=== PATIENT | female | born 1960 | race Caucasian/White ===

== ENCOUNTER 2019-10-12 05:58 | Day surgery (SDC) | payer OTHER ==
[~2019-10-12] VITALS: Ht 167.6 cm; Wt 76.5 kg
[~2019-10-12 05:58] MED LIST: SODIUM CHLORIDE 0.9% 1,000 ML ONE
[2019-10-12] MEDS ORDERED: LIDOCAINE 4% 50 ML SOLUTION TP ONE (05:59)
[2019-10-12] MEDS ORDERED: LIDOCAINE 2% 30 ML JELLY TP ONE (05:59)
[2019-10-12] MEDS ORDERED: BENZOCAINE 20% 50 MCG/SPRAY 57 GM TP ONE (05:59)
[2019-10-12] MEDS ORDERED: ALBUTEROL SULFATE 2.5 MG/0.5 ML NEB SOLUTION NEB ONE (05:59)
[2019-10-12] MEDS ORDERED: SODIUM CHLORIDE 0.9% 1,000 ML IV ONE (06:00)
[2019-10-12] MEDS ORDERED: BECL10.62 IH (07:04)
[2019-10-12] MEDS ORDERED: MONT10TA21 PO (07:04)
[2019-10-12] MEDS ORDERED: ALBU8HFA IH (07:04)
[2019-10-12] MEDS ORDERED: INSLAN SQ (07:04)
[2019-10-12] MEDS ORDERED: LISI-662 PO (07:04)
[2019-10-12] MEDS ORDERED: LEVO112T4 PO (07:04)
[2019-10-12] MEDS ORDERED: EVOL140P3 SQ (07:04)
[2019-10-12] MEDS ORDERED: SERT100T12 PO (07:04)
[2019-10-12] MEDS ORDERED: LEVO-72 PO (07:04)
[2019-10-12] MEDS ORDERED: FAMO20 PO (07:04)
[2019-10-12] MEDS ORDERED: ATOR20TA86 PO (07:04)
[2019-10-12] MEDS ORDERED: BUPR150T3 PO (07:04)
[2019-10-12] MEDS ORDERED: FLUT16H NASAL (07:04)
[2019-10-12 07:49] LABS: GLUCOMETER DEV NAME(LOC) SDS.; GLUCOSE,POINT OF CARE 210 MG/DL (70-110)
[2019-10-12] MEDS ORDERED: MIDAZOLAM HCL 2 MG/2 ML VIAL ONE (08:10)
[2019-10-12] MEDS ORDERED: FentaNYL CITRATE-PF 100 MCG/2 ML VIAL ONE (08:11)
[2019-10-12] MEDS ORDERED: MethylPREDNISolone SOD SUCC 125 MG/2 ML VIAL IVP ONE (08:45)
[2019-10-12] MEDS ORDERED: MethylPREDNISolone SOD SUCC 125 MG/2 ML VIAL ONE (08:48)
[2019-10-12] MEDS ORDERED: OXYGEN THERAPY IH SCH (20:00)
== END 2019-10-12 10:50 | disposition home or self-care (01) ==
LOC: SURGERY 05:58
PROVIDERS: ATTEND Internal Medicine Critical Care Medicine
DX: B37.0 Candidal stomatitis (principal); J38.4 Edema of larynx; F17.210 Nicotine dependence, cigarettes, uncomplicated; Z11.59 Encounter for screening for other viral diseases; E78.00 Pure hypercholesterolemia, unspecified; Z79.4 Long term (current) use of insulin
CPT/HCPCS: 31623; 31624; 71045; 82962; 87015; 87070; 87077; 87101; 87186; 87205; 87206; 87220; 87635; 88108; 88312; J2250; J2930; J3010; J7030